=== PATIENT | female | born 2000 | race Caucasian/White ===

== ENCOUNTER 2018-10-29 09:41 | Emergency (ER) | payer MEDICAID, SELFPAY ==
[~2018-10-29 09:41] MED LIST: Sodium Chloride 0.9% 1,000 ML BAG ONE
[2018-10-29 10:29] LABS: Bilirubin Negative (Negative); Blood, Urine Negative (Negative); Clarity Slightly Cloudy (Clear); Glucose, Urine (Dipstick) Negative (Negative); Leukocyte Small (Negative); Nitrite Negative (Negative); Protein, Urine (Dipstick) Negative (Neg-Trace); Urobilinogen 0.2 mg/dL (Less than 2)
[2018-10-29] MEDS ORDERED: Promethazine HCl 25 MG/ML VIAL ONE (10:31)
[2018-10-29 10:35] LABS: #Basophils 0.1 thou/uL (0.0-0.2); #Lymphocytes 1.8 thou/uL (1.20-3.40); #Monocytes 0.7 thou/uL (0.11-0.59); #Neutrophils 15.2 thou/uL (1.40-6.50); %Basophils 0.6 % (0.0-1.0); %Eosinophils 0.1 % (0.0-10.0); %Lymphocytes 10.2 % (28.0-48.0); %Neutrophils 85.1 % (31.0-61.0); Hemoglobin 11.8 g/dL (12.0-16.0); Mean Corpuscular HGB CONC 34.2 g/dL (32.0-36.0); Mean Corpuscular Volume 90.5 fL (78.0-98.0); Mean Platelet Volume 7.4 fL (7.4-10.4); Platelet Count 283 thou/uL (130-400); RBC Distribution Width 12.9 % (11.5-14.5); White Blood Cell (WBC) Count 17.9 thou/uL (4.8-10.8)
[2018-10-29 10:37] LABS: RBC/HPF 0-3 HPF (0-3); WBC/HPF 0-3 HPF (0-3)
[2018-10-29 10:41] LABS: Bacteria/HPF Rare-Few HPF (None Seen)
[2018-10-29 10:47] LABS: BHCG - Serum POSITIVE (NEGATIVE); Pregs Control Background? CLEAR/WHITE (CLR/WHITE); Pregs Control Bar Appear? YES (CONTROL BAR)
[2018-10-29 10:53] LABS: ALT (SGPT) 7 U/L (8-55); AST (SGOT) 11 U/L (5-34); Albumin 3.9 g/dL (3.5-5.0); Alkaline Phosphatase 52 U/L (40-150); Anion Gap 14 mmol/L (10-20); BUN (Urea Nitrogen) 8 mg/dL (7.0-18.7); Bilirubin, Total 0.3 mg/dL (0.2-1.2); Calc. Creatinine Clearance 0 mL/min (70-130); Calcium 8.8 mg/dL (7.8-10.44); Carbon Dioxide 20 mmol/L (22-29); Chloride 104 mmol/L (98-107); Estimated GFR-MDRD Greater than 90; Glucose 145 mg/dL (70-105); Lipase 10 U/L (8-78); Magnesium 1.3 mg/dL (1.7-2.2); Potassium 3.2 mmol/L (3.5-5.1); Protein, Total 6.9 g/dL (6.0-8.3); Sodium 135 mmol/L (136-145)
[2018-10-29 11:18] LABS: Phosphorus 2.9 mg/dL (2.3-4.7)
[2018-10-29] MEDS ORDERED: Famotidine In NaCl 20 mg/50 ml Premix Bag ONE (11:49)
[2018-10-29] MEDS ORDERED: Potassium Chloride 10 MEQ TAB ONE (11:50)
== END 2018-10-29 13:30 | disposition home or self-care (01) ==
LOC: MADERS 09:41
DX: O21.0 Mild hyperemesis gravidarum (principal); O99.332 Smoking (tobacco) complicating pregnancy, second trimester; F17.210 Nicotine dependence, cigarettes, uncomplicated; Z3A.16 16 weeks gestation of pregnancy
CPT/HCPCS: 80053; 81003; 81015; 83690; 83735; 84100; 84703; 85025; 87086; 87491; 87591; 96365; 96367; J2550; J7050

== ENCOUNTER 2024-12-08 19:54 | Emergency (ER) | payer OTHER, SELFPAY ==
[2024-12-08] MEDS ORDERED: Amoxicillin/Potassium Clav 875 MG TAB ONE (20:52)
== END 2024-12-08 20:56 | disposition home or self-care (01) ==
LOC: MADERS 19:54
DX: K04.7 Periapical abscess without sinus (principal); F17.290 Nicotine dependence, other tobacco product, uncomplicated
CPT/HCPCS: 99283